=== PATIENT | male | born 1990 | race Two or more races ===

== ENCOUNTER 2020-08-14 09:41 | Emergency (ER) | payer MEDICAID ==
[~2020-08-14] VITALS: Ht 170.2 cm; Wt 74.8 kg
[2020-08-14 09:50] VITALS: BP 134/77
[2020-08-14] MEDS ORDERED: LIDOCAINE /MPF 1% VIAL 5 ML VIAL ONE (10:02)
== END 2020-08-14 11:04 | disposition home or self-care (01) ==
LOC: ER 09:49
DX: H60.01 Abscess of right external ear (principal)
CPT/HCPCS: J3490